=== PATIENT | female | born 1980 | race Caucasian/White ===

== ENCOUNTER → 2016-10-19 | Day surgery (SDC) | payer OTHER ==
[~2016-10-19] VITALS: Ht 167.6 cm; Wt 88.5 kg
[~2016-10-19] MED LIST: CIPRO 500MG TA500 MG PO; PYRIDIUM200 MG PO
--- NOTE | 2016-10-19 09:05 | Operative Report ---
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 Patient with bothersome stress incontinence as well as voiding issues. She is interested in an urethral sling and cystoscopy. The risks, benefits and alternatives given. All questions answered. Patient was identified in the holding area and consented for urethral sling and cystoscopy. She was taken to the operating room and placed on the operating table in the supine position. Time out was performed and IV antibiotics given. LMA was performed. She was placed in the dorsal lithotomy position and prepped and draped in the standard sterile fashion. 1% lidocaine with epinephrine was infiltrated into the anterior vaginal wall suburethrally. Incision was made suburethrally. Vaginal flaps created taking care not to injure the urethra. The Coloplast sling was open. The trocars provided was used to place the minisling in the obturator fascia on the patient's left side then the right. The tightening prolene suture was used to tighten the sling in a tension free manner enough to accomodate the debakey forceps. The area was copiously irrigated with bacitracin irrigation and the incision closed using 3-0 vicryl running suture. A cystoscopy was performed and there was no mesh in the bladder or urethra. No mesh in vaginal fornices either. The bladder was consistent with an augmented bladder with mucous debris. Patient tolerated the procedure well. The sponge and needle count were correct at the end of the ase. Findings: no mesh in bladder or urethra or vaginal fornices Discharge Disposition: PACU
== END ==
LOC: STS 04:21
DX: N39.3 Stress incontinence (female) (male) (principal); R30.0 Dysuria; F17.200 Nicotine dependence, unspecified, uncomplicated
CPT/HCPCS: C1771; J0690; J2250

== ENCOUNTER → 2016-11-16 | Day surgery (SDC) | payer OTHER ==
--- NOTE | 2016-11-16 12:39 | Operative Report ---
Operative/Inv Procedure Report Surgery Date: 11/16/16 Name of Procedure: interstim stage 1 and 2, removal of nonfunctioning battery and lead on right side Pre-Operative Diagnosis: urinary retention Post-Operative Diagnosis: same Estimated Blood Loss: less than 50ml Surgeon/Mastercam Programmer: LEYDI WATSON MD Anesthesia: local monitored anesthesi Implants: sacral neuromodulator battery and lead Specimens: partial lead and nonfunctioning battery Complications: partial lead removed, fractured Condition: stable Operative Indication: urinary retention Operative/Procedure Note Note: This is an operative dictation on [facility]. She was identified in the holding area and consented for a possible interstim implant stage 1 and 2, sacroneuromodulation vs possible replacement of nonfunctioning battery. She was given the risks, benefits and alternatives and wished to proceed. She had good results with her initial interstim implant years ago. Patient was taken to the operating room and placed in the prone position. Time out was performed and then IV antibiotics were infused. She was sedated lightly so that she could communicate where she felt the stimulation. She was prepped and draped in the usual sterile fashion with chloraprep. Her landmarks were marked out with the ruler and marker first. It was confirmed using flouroscopy. The previous battery site was infiltrated with 1% lidocaine. Incision was made and the pocket was entered and the old battery was removed. Wrench was used to remove the lead. The 4 leads were then tested to see if it was still intact and patient did feel it on the right side and the buttock area. She did not field and the vaginal perineum. As result the patient's left side was tested. The patient's left side was infiltrated with 1% lidocaine to insert the needle. She had stimulation that was felt in the vaginal area. It was in good position visually and sensation was felt in her vagina. THe lead wa placed after dilating the skin with the knife followed by the dilator. The four leads were tested and she had motor and sensory response. Flouroscopy was used throughout the case to ensure proper position. The patient was then placed under deeper sedation. The crate liner was used to reach a new pocket that was created on the right superior buttock below the previous incision site because it was bothersome to her. The lead was fed through the dilator casing without issue. There was no active bleeding from the pocket site. The battery was attached to the lead after cleaing it of blood. The hex wrench was used to tighten the screw on the battery. The battery was placed into the pocket and then checked for any impedence issues. The battery was working well so the pocket was closed using 3-0 interrupted vicryl sutures followed by 4-0 monocryl. The incision site was also closed on the old battery site. A dressing was applied with mastazol, steri-strips and tegaderm over the pocket incision and the needle insertion sites. The sponge and needle counts were correct at the end of the case. The patient tolerated the procedure well. She was transferred to the recovery room in stable condition. Findings: good motor and sensory response on left side at the vaginal area Discharge Disposition: Same Day Admissions
--- NOTE | 2016-11-16 16:48 | RADIOLOGY REPORT ---
EXAMINATION: XR SACRUM AND COCCYX CLINICAL INFORMATION: InterStim stage 2. COMPARISON: None TECHNIQUE: Fluoroscopic imaging assistance was provided during InterStim placement. FLUOROSCOPY TIME: 20 seconds. NUMBER OF IMAGES: There are 7 saved fluoroscopic images of the pelvis submitted into the electronic picture archive. FINDINGS: Please refer to the operative report. The initial fluoroscopic image shows an implanted left sacral neural stimulator in place. Subsequent images were obtained during placement of a right-sided InterStim device. IMPRESSION: Fluoroscopic imaging assistance provided for InterStim placement.
== END ==
LOC: STS 04:24
DX: N39.42 Incontinence without sensory awareness (principal); R33.9 Retention of urine, unspecified; F17.200 Nicotine dependence, unspecified, uncomplicated
CPT/HCPCS: 72220; C1767; C1778; C1787; C1894; J0690; J1885; J2250